=== PATIENT | male | born 1970 | race Two or more races ===

== ENCOUNTER 2023-10-13 13:11 | Emergency (ER) | payer SELFPAY ==
[~2023-10-13] VITALS: Ht 170.2 cm; Wt 136.0 kg
[2023-10-13] MEDS ORDERED: TETANUS-DIPTH-ACEL PERTUSSIS 0.5ML SYR Tdap IM ONE (19:15)
[2023-10-13] MEDS ORDERED: ONDANSETRON ODT 4 MG TAB PO ONE (19:15)
[2023-10-13] MEDS ORDERED: HYDROcodone-ACET 10/325MG TAB PO ONE (19:15)
[2023-10-13] MEDS ORDERED: CEPH500C PO (19:18)
[2023-10-13] MEDS ORDERED: ACE3T PO ×2 (19:18→23:18)
[2023-10-13] MEDS ORDERED: cefTRIAXone SOD 1,000 MG VL IM ONE (19:30)
[2023-10-13 22:22] VITALS: BP 138/72; PULSE 89; RESP 20; TEMP 97.8; O2SAT 96
== END 2023-10-13 22:25 | disposition home or self-care (01) ==
LOC: ER 13:11
DX: S61.411A Laceration without foreign body of right hand, initial encounter (principal); W26.0XXA Contact with knife, initial encounter; Y93.89 Activity, other specified; Y92.89 Other specified places as the place of occurrence of the external cause; Y99.8 Other external cause status
CPT/HCPCS: 12004; 90471; 90715; 96372; 99284; J0696; Q0162

== ENCOUNTER 2023-10-14 11:17 | Emergency (ER) | payer SELFPAY ==
[~2023-10-14] VITALS: Ht 170.2 cm; Wt 137.0 kg
[~2023-10-14 11:17] MED LIST: ACE3T PO; CEPH500C PO
[2023-10-14 16:46] VITALS: BP 143/93; PULSE 95; RESP 18; O2SAT 95
== END 2023-10-14 17:14 | disposition home or self-care (01) ==
LOC: ER 11:17
DX: T81.33XA Disruption of traumatic injury wound repair, initial encounter (principal); X58.XXXA Exposure to other specified factors, initial encounter; Y93.89 Activity, other specified; Y92.89 Other specified places as the place of occurrence of the external cause; Y99.8 Other external cause status
CPT/HCPCS: 12020